=== PATIENT | female | born 1980 | race Caucasian/White ===

== ENCOUNTER 2018-10-01 15:34 | Emergency (ER) | payer OTHER ==
[2018-10-01 15:58] VITALS: BP 104/77; PULSE 91; TEMP 98.4; BMI 25.9
[2018-10-01] MEDS ORDERED: ACETAMINOPHEN 325 MG TABLET (FP) PO ONE (17:39)
--- NOTE | 2018-10-01 17:48 | PDOC ---
History of Present Illness - General Chief Complaint: Headache Stated Complaint: HEADACHE/BODYACHE Time Seen by Provider: 10/01/18 17:18 History Source: Patient Exam Limitations: Clinical Condition - History of Present Illness Initial Comments: 10/01/18 17:45 Patient with no sig PMhx present with complains of 3 days h/o nasal congestion, dry cough, runny nose, body aches, CHOW and chills. Denies sore throat, fever, abd pains, N/V. Denies any other symptoms Timing/Duration: other (3 days) Past History - Past Medical History Allergies/Adverse Reactions: Allergies Allergy/AdvReac Type Severity Reaction Status Date / Time No Known Allergies Allergy Verified 10/01/18 15:58 Home Medications: Ambulatory Orders Acetaminophen [Tylenol .Regular Strength -] 650 mg PO Q4H PRN #0 tablet Methylprednisolone [Medrol Dose Pipo] 4 mg PO ASDIR #21 tablet 10/01/18 Oseltamivir Phosphate [Tamiflu] 75 mg PO BID 5 Days #10 capsule 10/01/18 Asthma: No Cancer: No Cardiac Disorders: No COPD: No Diabetes: No HTN: No Seizures: No Thyroid Disease: No - Immunization History Td Vaccination: No Immunization Up to Date: No - Suicide/Smoking/Psychosocial Hx Smoking Status: No Smoking History: Never smoked Have you smoked in the past 12 months: No Number of Cigarettes Smoked Daily: 0 Hx Alcohol Use: No Drug/Substance Use Hx: No Substance Use Type: None Hx Substance Use Treatment: No Review of Systems - Review of Systems Able to Perform ROS?: Yes Is the patient limited Upper Sorbian proficient: No Constitutional: Yes: Chills, Malaise. No: Fever HEENTM: Yes: Symptoms Reported, See HPI, Nose Congestion. No: Eye Pain, Blurred Vision, Tearing, Recent change in vision, Double Vision, Cataracts, Ear Pain, Ocular Prothesis, Ear Discharge, Nose Pain, Tinnitus, Nose Bleeding, Hearing Loss, Throat Pain, Throat Swelling, Mouth Pain, Dental Problems, Difficulty Swallowing, Mouth Swelling, Other Respiratory: Yes: Symptoms reported, See HPI, Cough. No: Orthopnea, Shortness of Breath, SOB with Exertion, SOB at Rest, Stridor, Wheezing, Productive cough, Hemoptysis, Other Cardiac (ROS): No: Symptoms Reported, See HPI, Chest Pain, Edema, Irregular Heart Rate, Lightheadedness, Palpitations, Syncope, Chest Tightness, Other ABD/GI: No: Constipated, Diarrhea, Nausea, Vomiting, Abdominal cramping Neurological: Yes: Headache. No: Weakness, Dizziness All Other Systems: Reviewed and Negative *Physical Exam - Vital Signs Last Vital Signs Temp Pulse Resp BP Pulse Ox 98.4 F 91 H 18 104/77 98 10/01/18 15:56 10/01/18 15:56 10/01/18 15:56 10/01/18 15:56 10/01/18 15:56 - Physical Exam General Appearance: Yes: Nourished, Appropriately Dressed. No: Apparent Distress HEENT: positive: EOMI, MORGAN, Normal ENT Inspection, Normal Voice, Symmetrical, TMs Normal, Pharynx Normal Neck: positive: Supple Respiratory/Chest: positive: Lungs Clear, Normal Breath Sounds, Accessory Muscle Use. negative: Chest Tender, Respiratory Distress, Labored Respiration Cardiovascular: positive: Regular Rhythm, Regular Rate. negative: Murmur Gastrointestinal/Abdominal: positive: Flat, Soft. negative: Tender, Organomegaly Musculoskeletal: positive: Normal Inspection Extremity: positive: Normal Inspection Integumentary: positive: Normal Color Neurologic: positive: Fully Oriented, Alert, Normal Mood/Affect Moderate Sedation - Procedure Monitoring Vital Signs: Procedure Monitoring Vital Signs Temperature 98.4 F 10/01/18 15:56 Pulse Rate 91 H 10/01/18 15:56 Respiratory Rate 18 10/01/18 15:56 Blood Pressure 104/77 10/01/18 15:56 O2 Sat by Pulse Oximetry (%) 98 10/01/18 15:56 Medical Decision Making - Medical Decision Making 10/01/18 17:47 Patient with no sig PMhx present with complains of 3 days h/o nasal congestion, dry cough, runny nose, body aches, CHOW and chills. Denies sore throat, fever, abd pains, N/V. Clinical exam unremarkable. lungs CTAB. rapid flu and rapid strep test ordered. Tylenol 650mg PO ordered for CHOW. Treat based on lab results 10/01/18 18:36 rapid flu positive. Rapid strep negative.Patient stable for discharge on tamiflu with PCP f/u as needed *DC/Admit/Observation/Transfer Diagnosis at time of Disposition: Influenza A, URI due to influenza - Discharge Dispostion Disposition: HOME Condition at time of disposition: Stable Decision to Admit order: No - Prescriptions Prescriptions: Methylprednisolone [Medrol Dose Pipo] 4 mg PO ASDIR #21 tablet Oseltamivir Phosphate [Tamiflu] 75 mg PO BID 5 Days #10 capsule - Referrals - Patient Instructions Printed Discharge Instructions: DI for Influenza -- Adult Additional Instructions: flu test was positive. strep test was negative. take medications as prescribed. increase fluid intake. alternate between motrin and tylenol as needed for fever. 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
[2018-10-01] MEDS ORDERED: ACETAMINOPHEN 325 MG TABLET (FP) ONE (17:49)
== END 2018-10-01 18:49 | disposition home or self-care (01) ==
LOC: JERFT 15:34
DX: J09.X2 Influenza due to identified novel influenza A virus with other respiratory manifestations (principal)
CPT/HCPCS: 87070; 87804; 87880; 99281-25

== ENCOUNTER 2019-01-09 10:02 | Emergency (ER) | payer OTHER | END 2019-01-09 11:52 | disposition home or self-care (01) | LOC: JER 10:02 ==

== ENCOUNTER 2019-08-12 10:22 | Emergency (ER) | payer OTHER ==
[2019-08-12 10:27] VITALS: BP 130/82; PULSE 100; TEMP 98.3; BMI 26.2
[2019-08-12] MEDS ORDERED: IBUPROFEN 600 MG TABLET (FP) PO ONE ×2 (11:15→11:17)
[2019-08-12] MEDS ORDERED: PENICILLIN G BENZATHINE 1,200,000 UNIT/2 ML PFS IM ONE ×2 (11:38→11:46)
--- NOTE | 2019-08-12 11:44 | PDOC ---
History of Present Illness - General Chief Complaint: Sore Throat Stated Complaint: SORE THROAT/RT SIDE EAR Time Seen by Provider: 08/12/19 11:00 History Source: Patient Exam Limitations: No Limitations Past History - Past Medical History Allergies/Adverse Reactions: Allergies Allergy/AdvReac Type Severity Reaction Status Date / Time No Known Allergies Allergy Verified 08/12/19 10:26 Home Medications: Ambulatory Orders Acetaminophen [Tylenol .Regular Strength -] 650 mg PO Q4H PRN #0 tablet Methylprednisolone [Medrol Dose Pipo] 4 mg PO ASDIR #21 tablet 10/01/18 Oseltamivir Phosphate [Tamiflu] 75 mg PO BID 5 Days #10 capsule 10/01/18 Asthma: No Cancer: No Cardiac Disorders: No COPD: No Diabetes: No HTN: No Seizures: No Thyroid Disease: No - Immunization History Td Vaccination: No Immunization Up to Date: No - Psycho Social/Smoking Cessation Hx Smoking Status: No Smoking History: Never smoked Have you smoked in the past 12 months: No Number of Cigarettes Smoked Daily: 0 Information on smoking cessation initiated: No Hx Alcohol Use: No Drug/Substance Use Hx: No Substance Use Type: None Hx Substance Use Treatment: No *Physical Exam - Vital Signs Last Vital Signs Temp Pulse Resp BP Pulse Ox 98.3 F 100 H 18 130/82 99 08/12/19 10:24 08/12/19 10:24 08/12/19 10:24 08/12/19 10:24 08/12/19 10:24 - Physical Exam General Appearance: No: Apparent Distress HEENT: positive: TMs Normal, Pharyngeal Erythema, Tonsillar Exudate, Other (no tonsillar swelling noted). negative: Muffled/Hoarse voice Respiratory/Chest: positive: Lungs Clear, Normal Breath Sounds. negative: Respiratory Distress Gastrointestinal/Abdominal: positive: Soft. negative: Tender Integumentary: positive: Normal Color Neurologic: positive: Alert ED Treatment Course - Medications Given in the ED: ED Medications Discontinued Medications Generic Name Dose Route Start Last Admin Trade Name Freq PRN Reason Stop Dose Admin Ibuprofen 600 mg 08/12/19 11:15 08/12/19 11:18 Motrin - PO 08/12/19 11:16 600 mg ONCE ONE Administration Medical Decision Making - Medical Decision Making 38 y/o F with no sig pmh with presents with sore throat since 3 days ago along with R ear discomfort. Also with mild dry cough. +subjective fever last night; took Motrin last night. No antipyretics were taken. Denies sob, cp, vomiting, diarrhea, rash Rapid strep + Given Motrin and IM Penicillin 08/12/19 11:41 Discharge - Discharge Information Problems reviewed: Yes Clinical Impression/Diagnosis: Strep throat Condition: Stable Disposition: HOME - Admission No - Additional Discharge Information Prescription Drug Monitoring Program (I-STOP) results: I-STOP not reviewed - Follow up/Referral Referrals: Belia Alston MD [Primary Care Provider] - 2 Days - Patient Discharge Instructions Patient Printed Discharge Instructions: DI for Strep Throat Additional Instructions: Thank you for choosing [facility]. It was a pleasure taking care of you. You may take Motrin 600 mg every 6 hours by mouth as needed for mild to moderate pain. Take Motrin with food. Can do salt water gargles Follow-up with your doctor in 2 days Return to the Emergency Department if your symptoms worsen or persist or have other concerning symptoms. - Post Discharge Activity
== END 2019-08-12 11:53 | disposition home or self-care (01) ==
LOC: JERFT 10:22
DX: J02.0 Streptococcal pharyngitis (principal)
CPT/HCPCS: 87880; 99281-25

== ENCOUNTER 2020-12-29 17:17 | Emergency (ER) | payer OTHER ==
[2020-12-29 17:37] VITALS: BMI 26.6
[2020-12-29] MEDS ORDERED: ACETAMINOPHEN 325 MG TABLET (FP) PO ONE (20:13)
[2020-12-29] MEDS ORDERED: ACETAMINOPHEN 500 MG TABLET (FP) ONE (21:00)
[2020-12-29 21:08] LABS: BASO % 0.9 % (0-2.0); EOS % 1.2 % (0-4.5); HEMATOCRIT 37.2 % (32.4-45.2); HEMOGLOBIN 12.3 GM/dL (10.7-15.3); LYMPH % 32.6 % (8-40); MCH 25.6 pg (25.7-33.7); MCHC 33.2 g/dl (32.0-36.0); MEAN CELL VOLUME 77.1 fl (80-96); MEAN PLT VOLUME 8.8 fl (7.5-11.1); MONO % 4.3 % (3.8-10.2); PLATELET COUNT 296 K/MM3 (134-434); RBC 4.82 M/mm3 (3.60-5.2); WHITE BLOOD COUNT 9.8 K/mm3 (4.0-10.0)
[2020-12-29 21:23] LABS: CHLORIDE 108 mmol/L (98-107); SODIUM 140 mmol/L (136-145)
[2020-12-29 21:25] LABS: ANION GAP 5 MMOL/L (8-16); BLOOD UREA NITROGEN 7.2 mg/dL (7-18); CALCIUM 9.3 mg/dL (8.5-10.1); CO2 27 mmol/L (21-32)
[2020-12-29 21:26] LABS: GLUCOSE,RANDOM 98 mg/dL (74-106); MAGNESIUM 2.3 mg/dL (1.8-2.4)
[2020-12-29 21:29] LABS: CREATININE 0.9 mg/dL (0.55-1.3); PHOSPHOROUS 3.1 mg/dL (2.5-4.9)
[2020-12-30 00:53] VITALS: BP 117/80; PULSE 73; TEMP 97.5
== END 2020-12-30 01:28 | disposition home or self-care (01) ==
LOC: JER 17:17
DX: R00.2 Palpitations (principal)
CPT/HCPCS: 36415; 71046-TC-FY; 80048; 83735; 84100; 84443; 84484; 84703; 85025; 93005; 93010; 99285-25

== ENCOUNTER 2021-09-29 23:29 | Emergency (ER) | payer OTHER ==
[2021-09-29 23:35] VITALS: BP 141/76; PULSE 100; TEMP 97.8; BMI 26.4
[2021-09-30] MEDS ORDERED: KETOROLAC TROMETHAMINE 30 MG/1 ML VIAL IM ONE (00:19)
[2021-09-30] MEDS ORDERED: KETOROLAC TROMETHAMINE 30 MG/1 ML VIAL ONE (00:37)
== END 2021-09-30 00:42 | disposition home or self-care (01) ==
LOC: JERFT 23:29
PROC: 3E0233Z Introduction of Anti-inflammatory into Muscle, Percutaneous Approach (ICD-10-PCS; principal; 2021-09-29)
DX: M54.32 Sciatica, left side (principal)
CPT/HCPCS: 96372; 99284-25

== ENCOUNTER 2021-10-06 09:52 | Emergency (ER) | payer OTHER ==
[2021-10-06 10:08] VITALS: BP 118/84; PULSE 80; TEMP 97.9; BMI 26.4
[2021-10-06] MEDS ORDERED: NAPROXEN 500 MG TABLET PO ONE (11:45)
[2021-10-06] MEDS ORDERED: LIDOCAINE 5% TOPICAL PATCH TP ONE (11:46)
[2021-10-06] MEDS ORDERED: NAPROXEN 500 MG TABLET ONE (11:49)
[2021-10-06] MEDS ORDERED: LIDOCAINE 5% TOPICAL PATCH ONE (11:49)
[2021-10-06] MEDS ORDERED: LIDOCAINE PATCH REMOVAL MC ONE (22:00)
== END 2021-10-06 12:48 | disposition home or self-care (01) ==
LOC: JERFT 09:52
DX: M54.42 Lumbago with sciatica, left side (principal)
CPT/HCPCS: 99283-25

== ENCOUNTER 2021-10-22 14:26 | Emergency (ER) | payer OTHER ==
[2021-10-22 14:52] VITALS: BP 112/79; PULSE 88; TEMP 99.1; BMI 28.1
== END 2021-10-22 15:23 | disposition home or self-care (01) ==
LOC: FER 14:26
DX: L76.22 Postprocedural hemorrhage of skin and subcutaneous tissue following other procedure (principal)
CPT/HCPCS: 99281-25

== ENCOUNTER → 2021-10-22 | Day surgery (SDC) | payer OTHER | END | disposition home or self-care (01) | LOC: FMAMMOTONE 11:07 | PROVIDERS: ATTEND Midwife | PROC: 0HBU3ZX Excision of Left Breast, Percutaneous Approach, Diagnostic (ICD-10-PCS; principal; 2021-10-22) | DX: D05.12 Intraductal carcinoma in situ of left breast (principal); N64.89 Other specified disorders of breast; R92.0 Mammographic microcalcification found on diagnostic imaging of breast | CPT/HCPCS: 19081; 76098-TC-FY; 88305-TC; A4648 ==

== ENCOUNTER 2021-11-18 05:32 | Day surgery (SDC) | payer OTHER ==
[2021-11-13 15:44] VITALS: BMI 25.4
[2021-11-18] MEDS ORDERED: BUPIVACAINE HCL/PF 0.5% (5MG/ML) 10 ML VIAL ONE (12:16)
[2021-11-18] MEDS ORDERED: LIDOCAINE HCL 1% EPINEPHRINE 1:200,000 30 ML VIAL (PF) ONE (12:16)
[2021-11-18] MEDS ORDERED: MIDAZOLAM HCL 2 MG/2 ML SINGLE DOSE VIAL ONE ×2 (12:45→12:47)
[2021-11-18] MEDS ORDERED: PROPOFOL 20 ML ONE ×3 (12:48)
[2021-11-18] MEDS ORDERED: SUCCINYLCHOLINE CHLORIDE 200 MG/10 ML SYRINGE ONE (12:48)
[2021-11-18] MEDS ORDERED: LIDOCAINE 1%/EPI 1:100000 (50 ML MULTI DOSE VIAL) INF ONE (13:25)
[2021-11-18] MEDS ORDERED: BUPIVACAINE HCL/PF 0.5% (5MG/ML) 10 ML VIAL NR ONE (13:29)
[2021-11-18] MEDS ORDERED: BENZOIN/ALOE VERA/STORAX/TOLU 58 ML BOTTLE ONE (14:03)
[2021-11-18] MEDS ORDERED: KETOROLAC TROMETHAMINE 30 MG/1 ML VIAL ONE (14:32)
[2021-11-18] MEDS ORDERED: oxyCODONE HCL 5 MG TABLET PO PRN (14:45)
[2021-11-18] MEDS ORDERED: LACTATED RINGERS SOLUTION 1,000 ML IV SCH (14:45)
[2021-11-18] MEDS ORDERED: ONDANSETRON 4 MG/2 ML VIAL IVPUSH PRN (14:45)
[2021-11-18 15:39] VITALS: TEMP 98
[2021-11-18 18:19] VITALS: BP 122/78; PULSE 85
== END 2021-11-18 18:13 | disposition home or self-care (01) ==
LOC: JASU-SURG 05:32
PROVIDERS: ATTEND Surgery Surgical Oncology
PROC: 0HBU0ZZ Excision of Left Breast, Open Approach (ICD-10-PCS; principal; 2021-11-18 13:00)
DX: D05.12 Intraductal carcinoma in situ of left breast (principal)
CPT/HCPCS: 19281; 76098-TC-FY; 81025; 88307-TC; 94760

== ENCOUNTER → 2022-11-05 | Day surgery (SDC) | payer OTHER | END | disposition home or self-care (01) | LOC: FRADUS-SUR 09:05 | PROVIDERS: ATTEND Registered Nurse | PROC: 0HBU3ZX Excision of Left Breast, Percutaneous Approach, Diagnostic (ICD-10-PCS; principal; 2022-11-05) | DX: D24.1 Benign neoplasm of right breast (principal); N64.89 Other specified disorders of breast; N63.10 Unspecified lump in the right breast, unspecified quadrant | CPT/HCPCS: 19085; 77065-TC; 88305-TC; 88342-TC; A4648; A9579; C1887 ==

== ENCOUNTER → 2023-01-03 | Day surgery (SDC) | payer OTHER | END | disposition home or self-care (01) | LOC: JMAMMO-SUR 13:53 → JMAMMOTONE 13:53 | PROVIDERS: ATTEND Surgery Surgical Oncology | PROC: BH00ZZZ Plain Radiography of Right Breast (ICD-10-PCS; principal; 2023-01-03) | DX: D24.1 Benign neoplasm of right breast (principal) | CPT/HCPCS: 19281; A4648 ==

== ENCOUNTER 2023-01-05 04:07 | Day surgery (SDC) | payer OTHER ==
[2023-01-03 11:00] VITALS: BMI 27.3
[2023-01-05] MEDS ORDERED: BUPIVACAINE HCL/PF 0.25% (2.5MG/ML) 10 ML VIAL ONE (11:46)
[2023-01-05] MEDS ORDERED: BENZOIN/ALOE VERA/STORAX/TOLU 58 ML BOTTLE ONE (12:05)
[2023-01-05] MEDS ORDERED: PROPOFOL 20 ML ONE (12:28)
[2023-01-05] MEDS ORDERED: MIDAZOLAM HCL 2 MG/2 ML SINGLE DOSE VIAL ONE (12:29)
[2023-01-05] MEDS ORDERED: DEXAMETHASONE SOD PHOSPHATE 4 MG/1 ML VIAL ONE (13:32)
[2023-01-05] MEDS ORDERED: ONDANSETRON 4 MG/2 ML VIAL ONE (13:32)
[2023-01-05] MEDS ORDERED: BUPIVACAINE HCL/PF 0.25% (2.5MG/ML) 10 ML VIAL IJ ONE (13:52)
[2023-01-05] MEDS ORDERED: ONDANSETRON 4 MG/2 ML VIAL IVPUSH PRN (14:13)
[2023-01-05] MEDS ORDERED: LACTATED RINGERS SOLUTION 1,000 ML IV SCH (14:15)
[2023-01-05 16:05] VITALS: RESP 20
[2023-01-05] MEDS ORDERED: IBUPROFEN 600 MG TABLET (FP) PO ONE (16:24)
[2023-01-05] MEDS ORDERED: IBUPROFEN 600 MG TABLET (FP) PO PRN (16:26)
[2023-01-05 17:08] VITALS: BP 120/80; PULSE 78; TEMP 98
== END 2023-01-05 17:08 | disposition home or self-care (01) ==
LOC: JASU-SURG 04:07
PROVIDERS: ATTEND Surgery Surgical Oncology
PROC: 0HBT0ZX Excision of Right Breast, Open Approach, Diagnostic (ICD-10-PCS; principal; 2023-01-05 13:00)
DX: N60.21 Fibroadenosis of right breast (principal)
CPT/HCPCS: 76098-TC-FY; 81025; 88307-TC; 88341-TC; 88342-TC; 94760

== ENCOUNTER 2023-01-11 15:26 | Day surgery (SDC) | payer OTHER ==
[~2023-01-11 15:26] MED LIST: IRON SUCROSE INJECTION 200 MG in SODIUM CHLORIDE 100 ML IVPB ONE
[2023-01-11 18:41] VITALS: BP 131/72; PULSE 84; RESP 20; TEMP 98.2
== END 2023-01-11 16:35 | disposition home or self-care (01) ==
LOC: JONCNONCHE 15:26
PROVIDERS: ATTEND Internal Medicine Hematology & Oncology
PROC: 3E033GC Introduction of Other Therapeutic Substance into Peripheral Vein, Percutaneous Approach (ICD-10-PCS; principal; 2023-01-11)
DX: D50.9 Iron deficiency anemia, unspecified (principal)
CPT/HCPCS: 96365; J1756

== ENCOUNTER 2023-01-18 15:12 | Day surgery (SDC) | payer OTHER ==
[2023-01-18 17:05] VITALS: BP 116/76; PULSE 74; RESP 18; TEMP 98.5
== END 2023-01-18 16:30 | disposition home or self-care (01) ==
LOC: JONCNONCHE 15:12
PROVIDERS: ATTEND Internal Medicine Hematology & Oncology
PROC: 3E033GC Introduction of Other Therapeutic Substance into Peripheral Vein, Percutaneous Approach (ICD-10-PCS; principal; 2023-01-18)
DX: D50.9 Iron deficiency anemia, unspecified (principal)
CPT/HCPCS: 96365; J1756

== ENCOUNTER 2023-01-25 16:09 | Emergency (ER) | payer OTHER ==
[2023-01-25 16:28] VITALS: BP 122/75; PULSE 97; RESP 18; TEMP 99.8
[2023-01-25] MEDS ORDERED: SODIUM CHLORIDE 1,000 ML IV ONE (18:06)
[2023-01-25] MEDS ORDERED: ACETAMINOPHEN 1000 MG/100 ML BAG IVPB ONE (18:06)
[2023-01-25] MEDS ORDERED: METOCLOPRAMIDE HCL INJECTION 10 MG/2 ML VIAL IVPUSH ONE (18:07)
[2023-01-25] MEDS ORDERED: METOCLOPRAMIDE HCL INJECTION 10 MG/2 ML VIAL ONE (18:45)
[2023-01-25] MEDS ORDERED: ACETAMINOPHEN INJECTION 100 ML IVPB ONE (18:46)
[2023-01-25 21:08] LABS: EPI CELLS 20 /uL (0-25.1); HYALINE CASTS 1 /uL (0-3.1); URINE APPEARANCE CLEAR; URINE BACTERIA 691 /uL (0-1359); URINE BILIRUBIN NEGATIVE (NEGATIVE); URINE COLOR YELLOW; URINE GLUCOSE (UA) NEGATIVE (NEGATIVE); URINE KETONE NEGATIVE (NEGATIVE); URINE LEUK ESTERASE 2+ (NEGATIVE); URINE NITRITE NEGATIVE (NEGATIVE); URINE PROTEIN NEGATIVE (NEGATIVE); URINE RBC 11 /uL (0-23.9); URINE UROBILINOGEN 0.2 mg/dL (0.2-1.0); URINE WBC 157 /uL (0-25.8)
[2023-01-25 21:11] LABS: BASO % 0.2 % (0-2.0); EOS % 0.4 % (0-4.5); HEMOGLOBIN 12.8 GM/dL (10.7-15.3); LYMPH % 6.5 % (8-40); MCH 24.6 pg (25.7-33.7); MCHC 32.7 g/dl (32.0-36.0); MEAN CELL VOLUME 75.2 fl (80-96); MONO % 5.3 % (3.8-10.2); NEUT % 87.6 % (42.8-82.8); PLATELET COUNT 295 10^3/uL (134-434); RBC 5.19 M/mm3 (3.60-5.2); RDW 16.1 % (11.6-15.6); WHITE BLOOD COUNT 15.3 K/mm3 (4.0-10.0)
[2023-01-25 21:27] LABS: POTASSIUM 3.8 mmol/L (3.5-5.1)
[2023-01-25 21:29] LABS: ALBUMIN 4.4 g/dl (3.4-5.0); CALCIUM 9.7 mg/dL (8.5-10.1)
[2023-01-25 21:33] LABS: CREATININE 0.7 mg/dL (0.55-1.3)
[2023-01-25 21:34] LABS: BILIRUBIN,TOTAL 0.7 mg/dL (0.2-1); TOT PROT 7.9 g/dl (6.4-8.2)
== END 2023-01-25 23:01 | disposition home or self-care (01) ==
LOC: JER 16:09 → JERFT 16:09
PROC: 3E033NZ Introduction of Analgesics, Hypnotics, Sedatives into Peripheral Vein, Percutaneous Approach (ICD-10-PCS; principal; 2023-01-25)
PROC: 3E033GC Introduction of Other Therapeutic Substance into Peripheral Vein, Percutaneous Approach (ICD-10-PCS; 2023-01-25)
PROC: 3E0337Z Introduction of Electrolytic and Water Balance Substance into Peripheral Vein, Percutaneous Approach (ICD-10-PCS; 2023-01-25)
DX: B34.9 Viral infection, unspecified (principal); R51.9 Headache, unspecified; M79.10 Myalgia, unspecified site; Z20.822 Contact with and (suspected) exposure to COVID-19
CPT/HCPCS: 0241U-QW; 36415; 71046-TC-FY; 80053; 81003; 85025; 87040; 87086; 87651; 99284-25

== ENCOUNTER 2023-01-28 15:03 | Day surgery (SDC) | payer OTHER ==
[2023-01-28] MEDS ORDERED: IRON SUCROSE COMPLEX 200 MG in SODIUM CHLORIDE 100 ML IVPB ONE (16:00)
[2023-01-28 17:48] VITALS: BP 116/72; PULSE 98; RESP 81; TEMP 98
== END 2023-01-28 16:30 | disposition home or self-care (01) ==
LOC: J7W 15:03 → JONCNONCHE 15:03
PROVIDERS: ATTEND Internal Medicine Hematology & Oncology
PROC: 3E033GC Introduction of Other Therapeutic Substance into Peripheral Vein, Percutaneous Approach (ICD-10-PCS; principal; 2023-01-28)
DX: D50.0 Iron deficiency anemia secondary to blood loss (chronic) (principal)
CPT/HCPCS: 96365

== ENCOUNTER 2023-02-01 15:22 | Day surgery (SDC) | payer OTHER ==
[~2023-02-01 15:22] MED LIST changes: +IRON SUCROSE COMPLEX 200 MG in SODIUM CHLORIDE 100 ML IVPB ONE; -IRON SUCROSE INJECTION 200 MG in SODIUM CHLORIDE 100 ML IVPB ONE
[2023-02-01 15:47] VITALS: RESP 16; TEMP 98.4
[2023-02-01 16:09] VITALS: BP 128/83; PULSE 79
== END 2023-02-01 16:11 | disposition home or self-care (01) ==
LOC: J7W 15:22 → JONCNONCHE 15:22
PROVIDERS: ATTEND Internal Medicine Hematology & Oncology
PROC: 3E033GC Introduction of Other Therapeutic Substance into Peripheral Vein, Percutaneous Approach (ICD-10-PCS; principal; 2023-02-01)
DX: D50.9 Iron deficiency anemia, unspecified (principal)
CPT/HCPCS: 96365